=== PATIENT | male | born 1965 | race Caucasian/White ===

== ENCOUNTER 2024-12-23 15:16 | Outpatient (AMB) | payer OTHER, SELFPAY ==
--- OUTSIDE RECORDS SUMMARY | 2024-12-23 16:53 | XMS_ITS | Clinical Summary ---
Author Organization [facility] Address [address] [place] [address] Phone Care Team Providers Care Cook Chef Name Role Phone Ludwig Guzman Primary Care Provider [phone] Social History Tobacco Use Types Packs/Day Years Used Date Smoking Tobacco: Never Smokeless Tobacco: Never Alcohol Use Standard Drinks/Week Comments Yes 0 (1 standard drink = 0.6 oz pur e alcohol) Sex and Gender Information Value Date Recorded Sex Assigned at Not on file Legal Sex Male 3:25 PM EST Gender Identity Not on file Sexual Orientation Not on file Obstetrics History Plan of Treatment Health Maintenance Due Date Last Done Comments DTaP,Tdap,and Td Vaccines (1 - Tdap) 1985 Hepatitis B Vaccines (1 of 3 - 19+ 3-dose series) 1985 Pneumococcal Vaccine: 50+ Ye ars (1 of 1 - PCV) 2016 Zoster Vaccines (1 of 2) 2016 COVID-19 Vaccine (2023-2 5 season) 2023 Depression Screening 05/01/2024 Cholesterol Screening (Lipid Panel) 09/05/2024 Colorectal Cancer Screening: Colonoscopy 09/05/2024 HIV Screening 09/05/2024 Hepatitis C Screening 09/05/2024 Social Influencers of Health Screening 09/05/2024 Influenza Vaccine (#1) 2024 HIB Vaccines Aged Out No longer eligi ble based on patient's age to complete this topic HPV Vaccines Aged Out No longer eligi ble based on patient's age to complete this topic Hepatitis A Vaccines Aged Out No long er eligible based on patient's age to complete this topic IPV Vaccines Aged Out No longer eligi ble based on patient's age to complete this topic MMR Vaccines Aged Out No longer eligi ble based on patient's age to complete this topic Meningococcal ACWY Vaccine Aged Out N o longer eligible based on patient's age to complete this topic Meningococcal B Vaccine Aged Out No l onger eligible based on patient's age to complete this topic RSV Immunization Patients Un melo 20 months Aged Out No longer eligible b ased on patient's age to complete this topic Varicella Vaccines Aged Out No longer eligible based on patient's age to complete this topic Insurance [employer] Care Teams Cook Chef Relationship Specialty Start Date End Date Ludwig Guzman DO 6 [facility] [address] [place], [place] PCP - General Internal Medicine 02/09/21
--- OUTSIDE RECORDS SUMMARY | 2024-12-23 16:53 | XMS_ITS | Clinical Summary ---
Author Organization [facility] Address [address] [place] [address] [place] [id number] Phone Care Team Providers Care Deputy Of Counter Intelligence Name Role Phone Prakash Willard DO Primary Care Provider Allergies Active Allergy Reactions Criticality Noted Date Comments Cefaclor 11/18/2024 Other Reaction(s): Not available Medications testosterone cypionate (DEPO-TESTOTERO NE) 100 mg/mL injection Inject 200 mg into the muscle every 14 (fourteen) days. Active omega 4-und-vxc-fish oil 1,000 mg (120 mg-180 mg) Cap Take 1 capsule by mouth daily. Active KRILL OIL ORAL Take 1,000 mg by mouth daily. Active sertraline (ZOLOFT) 100 MG tablet Take 1.5 tablets (150 mg total) by mouth every morning. 10 tablet 10/12/2024 Active Hospital, Clinic, or Other Facility Administered Medication Ordered Dose Route Frequency Start Date End Date Status triamcinolone acetonide (KENALOG-40) 40 mg/mL injection 20 mg 20 mg See Adm Inst Once 11/18/2024 02/16/2025 Active lidocaine (XYLOCAINE) 1% injection 0.5 mL 0.5 mL See Adm Inst Once 11/18/2024 02/16/2025 Active triamcinolone acetonide (KENALOG-40) 40 mg/mL injection 20 mg 20 mg See Adm Inst Once 11/18/2024 02/16/2025 Active lidocaine (XYLOCAINE) 1% injection 0.5 mL 0.5 mL See Adm Inst Once 11/18/2024 02/16/2025 Active Active Problems Problem Noted Date Diagnosed Date Need for influenza vaccination 02/13/2024 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 Renal cyst 03/16/2023 Environmental allergies 03/16/2023 Hypotestosteronism 12/27/2022 03/16/2023 Assessment & Plan (03/17/2023 12:47 AM EST): Referral placed to endocrinology for further management. Hyperglycemia 03/15/2022 03/16/2023 Depressive disorder 04/02/2019 03/16/2023 Assessment & Plan (03/17/2023 12:47 AM EST): Stable and well-controlled on current medication. No change at this time. Encounters Date Type Department Care Team Description 11/18/2024 8:31 AM EDT - 11/18/2024 11:59 PM EDT Hospital Encounter [address] [address] Kaya Pierce MD Discharge Disposition: Home or Self Care 11/18/2024 8:30 AM EDT Office Visit [facility] [address] [place] [id number] Kaya Pierce MD Pain (Primary Dx); Trigger index finger of left hand; Trigger middle finger of left hand 11/11/2024 Orders Only [facility] [address] [place] [address] ProviderRosy MD 10/12/2024 Telephone [facility] [address] [place] [address] Raquel Kelly NP Medication Problem (After Hours Call/) 10/12/2024 Nurse Triage [address] [place] [address] Georgiana Snow RN Follow-up (After hours call ) 10/12/2024 Orders Only [facility] [address] [place] [address] [place] [address] Prakash Willard, DO 10/02/2024 Refill [facility] [address] [place] [address] [place] [address] Prakash Willard, DO Medication Refill from Last 3 Months Immunizations Immunization Administration Dates Next Due INFLUENZA, SPLIT VIRUS, TRIVALENT PF 02/13/2024 Influenza Quadrivalent Prese rvative Free IM 02/07/2023,01/31/2022,03/02/2021,2019,02/20/2019 Influenza Quadrivalent w/ Preservative IM 02/13/2019 Tdap 11/20/2017 Zoster recombinant 12/08/2023 Family History Medical History Relation Comments Esophageal cancer Father CABG Mother x3 Diabetes mellitus Mother Heart attack Mother Anxiety disorder Sister Depression Sister Cancer Unspecified Stroke Neg Hx Relation Status Comments Father Alive Mother Alive Sister Alive Unspecified Social History Tobacco Use Types Packs/Day Years Used Date Smoking Tobacco: Never Smokeless Tobacco: Never Tobacco Cessation:Counseling Given: Not Answered Alcohol Use Standard Drinks/Week Comments Yes 0 (1 standard drink = 0.6 oz pur e alcohol) social Child or Family Care Answer Date Record ed Do you have problems with on e of the following making it difficult for you to work, study, or receive health care? No 03/15/2023 Education Answer Date Recorded Are you interested in help w ith more adult education (for example, completing high school, GED, job training, learning the [place] language, technical skills, or developing parenting skills)? No 03/15/2023 Are you concerned about learning? Not on file 03/15/2023 No 03/15/2023 Yes 03/15/2023 Food Answer Date Recorded Within the past 6 months we worried whether our food would run out before we got money to buy more. Never True 03/15/2023 Within the past 6 months the food we bought just didn't last and we didn't have enough money to get more. Never True Residential Stability Answer Date Recor ded What is your housing situation today? I have susan sing 03/15/2023 How many times have you moved in the past 12 mon ths? One time 03/15/2023 Paying for Meds Answer Date Recorded Do you have trouble paying for medicines? No 03/15/2023 Paying Utility Bills Answer Date Record ed Do you have trouble paying your heating or elect ricity bill? No 03/15/2023 Transportation Answer Date Recorded Has the lack of transportati on kept you from medical appointments or from getting medications? No 03/15/2023 Digital Access Answer Date Recorded No 03/15/2023 Yes 03/15/2023 Do you have reliable internet access at home? Ye s 03/15/2023 Do you have a device (e.g., phone, tablet, computer) with a working camera? Yes 03/15/2023 Intimate Partner Violence Answer Date R ecorded Denied Basic Needs Not on file 03/15/2023 In the past 12 months have y ou been in a relationship with a person who hurts, threatens, or tries to control you? No 03/15/2023 Worried food would run out Not on file 03/15 In the past 12 months have y ou been in a relationship with a person who hurts, threatens, or tries to control you? No 03/15/2023 Sex and Gender Information Value Date Recorded Sex Assigned at Not on file Legal Sex Male 9:39 PM EDT Gender Identity Not on file Sexual Orientation Not on file Last Filed Vital Signs Vital Sign Reading Time Taken Comments Blood Pressure 150/84 03/16/2023 3:14 PM EST Pulse 98 03/16/2023 3:14 PM EST Temperature 37 C (98.6 F) 03/16/2023 3:14 PM EST Respiratory Rate 18 03/08/2023 12:16 PM EST Oxygen Saturation 97% 03/16/2023 3:14 PM EST Inhaled Oxygen Concentration - - Weight 83 kg (183 lb) 03/16/2023 3:14 PM EST Height 172.7 cm (5' 8 ) 03/16/2023 3:14 PM EST Body Mass Index 27.83 03/16/2023 3:14 PM EST Plan of Treatment Health Maintenance Due Date Last Done Comments LIPID PANEL 1966 HEPATITIS C SCREENING 1984 HIV ONE-TIME SCREENING (18-65 YEARS) 1984 SCREENING FOR DIABETES 2001 COLOGUARD 11/17/2011 FIT TEST 11/17/2011 FOBT 11/17/2011 SIGMOIDOSCOPY 11/17/2011 VIRTUAL COLONOSCOPY 11/17/2011 PNEUMOCOCCAL VACCINES (50+ years) (1 of 1 - PCV) 2016 COVID-19 VACCINE (5 - season) 2023 01/31/2022, 04/13/2021, 06/12/2020, Additional history exists ZOSTER VACCINES (2 of 2) 02/02/2024 12/08/2023 DEPRESSION SCREENING 03/15/2024 03/15/2023 COLONOSCOPY 05/01/2025 05/01/2018 COLORECTAL CANCER SCREENING 05/01/2025 Adult Td,Tdap Booster 11/21/2027 11/20/2017 SMOKING STATUS SCREENING (Once After 26 Yrs) Completed 11/18/2024 HEPATITIS A VACCINES Aged Out No long er eligible based on patient's age to complete this topic HIB VACCINES Aged Out No longer eligi ble based on patient's age to complete this topic MENINGOCOCCAL VACCINES (ACWY) Aged Out No longer eligible based on patient's age to complete this topic MENINGOCOCCAL VACCINES (B) Aged Out N o longer eligible based on patient's age to complete this topic Medical Devices Not on file Procedures Procedure Name Priority Date/Time Associated Diagnosis Comments XR HAND 3 OR MORE VIEWS (LEFT) Routine 11/18/2024 8:38 AM EDT Pain OUTSIDE LAB Routine 11/07/2024 12:31 PM EDT HM COLONOSCOPY FOR RESULT ENTRY ONLY Routine 05/01/2018 from Last 3 Months or Most Recently Relevant to Health Maintenance Results * XR HAND 3 OR MORE VIEWS (LEFT) (11/18/2024 8:38 AM EDT) Narrative SYSTEMGENERATED, DOCUMENTATION - 11/18/2024 8:38 AM EDT This image report has been auto-finalized and has not been read by a Radiologist. Interpretation has been included in the provider encounter note for this date of service. us Kaya Pierce MD IMG XR UPPER EXTREMITY Final Result * Outside Lab (11/07/2024 12:31 PM EDT) Historical Provider LAB BLOOD ORDERABLES Edit ed Result - Final * COLONOSCOPY FOR RESULT ENTRY ONLY (05/01/2018) Colonoscopy several polyps removed Historical Provider HEALTH MAINTENANCE Final Result from Last 3 Months or Most Recently Relevant to Health Maintenance Insurance CHOICE CHOICE CHOICE CHOICE CHOICE CHOICE Care Teams Deputy Of Counter Intelligence Relationship Specialty Start Date End Date Prakash Willard DO [address] [place] [address], [address] [place] [address] [email or web address] PCP - General Internal Medicine 03/08/23 Additional Source Comments The information contained in this document represents components of the legal health record. It is not the complete legal health record.[facility]
--- OUTSIDE RECORDS SUMMARY | 2024-12-23 16:53 | XMS_ITS | Encounter Summary ---
Author Organization [facility] Address [address] [place] [phone] Care Team Providers Care Double End Production Grinder Name Role Phone Ludwig Guzman DO Primary Care Provider [phone] Encounter Details Date Type Department Care Team (Late st Contact Info) Description 09/04/2024 Lab Requisition [facility] - Main Lab [address] [place] [address] Bita Figueroa NP 200 [facility] [address] [place] [address] Benign prostatic hyperplasia with lower urinary tract symptoms Social History Tobacco Use Types Packs/Day Years Used Date Smoking Tobacco: Never Smokeless Tobacco: Never Alcohol Use Standard Drinks/Week Comments Yes 0 (1 standard drink = 0.6 oz pur e alcohol) Sex and Gender Information Value Date Recorded Sex Assigned at Not on file Legal Sex Male 3:25 PM EST Gender Identity Not on file Sexual Orientation Not on file documented as of this encounter Plan of Treatment Not on file documented as of this encounter Procedures Procedure Name Priority Date/Time Associated Diagnosis Comments PROSTATE SPECIFIC ANTIGEN DIAGNOSTIC Routine 09/04/2024 10:30 AM EDT Benign prostatic hyperplasia with lower urinary tract symptoms documented in this encounter Results * Prostate specific antigen diagnostic (09/04/2024 10:30 AM EDT) PSA 1.26 0.00 - 4.00 ng/mL LAB CHEMISTRY METHOD 09/04/2024 4:18 PM EDT [facility] Blood Venous blood specimen / Unknown 09/04/2024 10:30 AM EDT 09/04/2024 1:50 PM EDT Narrative [facility] ([facility] - 09/04/2024 4:18 PM EDT The Siemens Advia Centaur Chemiluminescent Immunoassay is used. Results obtained with different assay methods or kits cannot be used interchangeably. Results cannot be interpreted as absolute evidence of the presence or absence of malignant disease. us Sunshine Figueroa PRODUCT ANALYST LAB BLOOD ORDERABLES Final Resul t [facility] [address] [place] [address], documented in this encounter Visit Diagnoses Diagnosis Benign prostatic hyperplasia with lower urinary tract symptoms documented in this encounter Care Teams Double End Production Grinder Relationship Specialty Start Date End Date Ludwig Guzman DO 6 [facility] [address] [place], [place] PCP - General Internal Medicine 02/09/21 documented as of this encounter
== END 2024-12-24 13:48 | disposition home or self-care (01) ==
LOC: HO.HMGAL 15:16
PROVIDERS: PCP Internal Medicine; Visit Provider Registered Nurse Emergency
DX: J30.89 Other allergic rhinitis (principal)
CPT/HCPCS: 95117; 95165

== ENCOUNTER 2025-02-03 11:36 | Outpatient (AMB) | payer OTHER, SELFPAY ==
--- OUTSIDE RECORDS SUMMARY | 2025-02-03 14:11 | XMS_ITS | Clinical Summary ---
Author Organization [address] [facility] Address [address] [place] [address] Phone Care Team Providers Care Loan Examiner Name Role Phone Ludwig Guzman DO Primary Care Provider [phone] Social History Tobacco Use Types Packs/Day Years [...] Health Maintenance Due Date Last Done Comments Colorectal Cancer Screening: Colonoscopy 1966 DTaP,Tdap,and Td Vaccines (1 - Tdap) 1985 Hepatitis B Vaccines (1 of 3 - 19+ 3-dose series) 1985 Pneumococcal Vaccine: 50+ Ye ars (1 of 1 - PCV) 2016 Zoster Vaccines (1 of 2) 2016 Depression Screening 05/01/2024 Cholesterol Screening (Lipid Panel) 09/05/2024 HIV Screening 09/05/2024 Hepatitis C Screening 09/05/2024 Social Influencers of Health Screening 09/05/2024 COVID-19 Vaccine ( - 2023-2 5 season) 2024 Influenza Vaccine (#1) 2024 RSV Immunization Adult Patie nts (1 - 1-dose 75+ series) 2041 HIB Vaccines Aged Out No longer eligi [...] complete this topic Insurance [employer] Care Teams Loan Examiner Relationship Specialty Start Date End Date Ludwig Guzman DO 6 [facility] [address] [place], [place] PCP - General Internal Medicine 02/09/21
--- OUTSIDE RECORDS SUMMARY | 2025-02-03 14:12 | XMS_ITS | Encounter Summary ---
Author Organization [facility] [place] Address [id number] [place] [phone] Care Team Providers Care Car Wash Attendant Name Role Phone Ludwig Guzman DO Primary Care Provider [phone] Encounter Details Date Type Department Care Team (Late st Contact Info) Description 09/04/2024 Lab Requisition [facility] - Main Lab [address] [place] [address] Bita Figueroa NP 200 [facility] [address] [place] [address] Benign prostatic hyperplasia with lower [...] LAB CHEMISTRY METHOD 09/04/2024 4:18 PM EDT [facility] ([facility] Blood Venous blood specimen / Unknown 09/04/2024 10:30 AM EDT 09/04/2024 1:50 PM EDT Narrative [facility] ([facility] - 09/04/2024 4:18 PM EDT The Siemens Advia Centaur Chemiluminescent Immunoassay is used. Results obtained with different assay methods or kits cannot be used interchangeably. Results cannot be interpreted as absolute evidence of the presence or absence of malignant disease. us Sunshine Figueroa IT TECHNICAL SUPPORT SPECIALIST LAB BLOOD ORDERABLES Final Resul t [facility] [address] [place] [address], documented in this encounter Visit Diagnoses Diagnosis Benign prostatic hyperplasia with lower urinary tract symptoms documented in this encounter Care Teams Car Wash Attendant Relationship Specialty Start Date End Date Ludwig Guzman DO 6 [facility] [address] [place], [place] PCP - General Internal Medicine 02/09/21 documented as of this encounter
== END 2025-02-03 11:39 | disposition home or self-care (01) ==
LOC: HO.HMGAL 11:36
PROVIDERS: PCP Pediatrics; Visit Provider Registered Nurse Emergency
DX: J30.89 Other allergic rhinitis (principal)
CPT/HCPCS: 95117; 95165

== ENCOUNTER 2025-03-19 13:22 | Outpatient (AMB) | payer OTHER, SELFPAY ==
--- OUTSIDE RECORDS SUMMARY | 2025-03-20 01:21 | XMS_ITS | Clinical Summary ---
Author Organization [facility] Address [address] [facility] [address] [place] [phone] Phone Care Team Providers Care Area Intelligence Technician Name Role Phone Prakash Willard DO Primary Care Provider Allergies Active Allergy Reactions Criticality Noted Date Comments Cefaclor 11/18/2024 Other Reaction(s): Not available Medications testosterone cypionate (DEPO-TESTOTERO NE) 100 mg/mL injection Inject 200 mg into the muscle every 14 (fourteen) days. Active omega 3-ozj-cjy-fish oil 1,000 mg (120 mg-180 mg) Cap Take 1 capsule by mouth daily. Active KRILL OIL ORAL Take 1,000 mg by mouth daily. Active sertraline (ZOLOFT) 100 MG tablet Take 1.5 tablets (150 mg total) by mouth every morning. 135 tablet 01/20/2025 Active Active Problems Problem Noted Date Diagnosed [...] current medication. No change at this time. Immunizations Immunization Administration Dates Next Due INFLUENZA, [...] Answer Date Recorded Are you interested in more education? Not on scooter e 03/19/2025 Are you concerned about learning? Not on file 03/19/2025 No 03/19/2025 No 03/19/2025 Food Answer Date Recorded Within the past [...] 03/15/2023 Digital Access Answer Date Recorded No 03/19/2025 No 03/19/2025 Reliable internet access at home? Not on file 03/19/2025 Device with a working camera? Not on file Intimate Partner Violence Answer Date R ecorded [...] 03/16/2023 3:14 PM EST Plan of Treatment Upcoming Encounters Date Type Department Care Team (Late st Contact Info) Description 04/22/2025 8:00 AM EST Office Visit [facility] [address] [place] [address] [place] [address] Prakash Willard DO [address] [place] [address] [email or web address] Health Maintenance Due Date Last Done Comments LIPID PANEL 1966 HEPATITIS C SCREENING 1984 HIV ONE-TIME SCREENING (18-65 YEARS) 1984 SCREENING FOR DIABETES 2001 COLOGUARD 11/17/2011 FIT TEST 11/17/2011 FOBT 11/17/2011 SIGMOIDOSCOPY 11/17/2011 VIRTUAL COLONOSCOPY 11/17/2011 PNEUMOCOCCAL VACCINES (50+ years) (1 of 1 - PCV) 2016 ZOSTER VACCINES (2 of 2) 02/02/2024 12/08/2023 DEPRESSION SCREENING 03/15/2024 03/15/2023 INFLUENZA VACCINE (#1) 2024 , 02/07/2023, 01/31/2022, Additional history exists COVID-19 VACCINE ( season) 2024 01/31/2022, 04/13/2021, 06/12/2020, Additional history exists COLONOSCOPY 05/01/2025 05/01/2018 COLORECTAL CANCER SCREENING 05/01/2025 Adult Td,Tdap Booster 11/21/2027 11/20/2017 RSV VACCINE (1 - 1-dose 75+ series) 2041 SMOKING STATUS SCREENING (Once After 26 Yrs) [...] Procedure Name Priority Date/Time Associated Diagnosis Comments COLONOSCOPY FOR RESULT ENTRY ONLY Routine 05/01/2018 from Last 3 Months or Most Recently Relevant to Health Maintenance Results * COLONOSCOPY FOR RESULT ENTRY ONLY (05/01/2018) Colonoscopy several polyps removed us Historical Provider HEALTH MAINTENANCE Final Result from Last 3 Months or Most Recently Relevant to Health Maintenance Insurance CHOICE CHOICE CHOICE CHOICE CHOICE Care Teams Area Intelligence Technician Relationship Specialty Start Date End Date Prakash Willard DO [address] [place] [address], [address] [place] [address] [email or web address] PCP - General Internal Medicine 03/08/23 Additional Source Comments The information contained in this document represents components of the legal health record. It is not the complete legal health record.[facility]
--- OUTSIDE RECORDS SUMMARY | 2025-03-20 01:21 | XMS_ITS | Data Portability ---
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 REVIEW OF PRIOR EXTERNAL NOTES/RESULTS, ORDERING OF TEST(S) CATEGORY 2. 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 REVIEW OF PRIOR EXTERNAL NOTES/RESULTS, ORDERING OF TEST(S) CATEGORY 2. 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 REVIEW OF PRIOR EXTERNAL NOTES/RESULTS, ORDERING OF TEST(S) CATEGORY 2. ASSESSMENT REQUIRING INDEPENDENT HISTORIAN(S) INCLUDE WHO THE HISTORIAN IS AND RELATION TO PT AND WHY PT IS UNABLE TO GIVE COMPLETE HISTORY ELEMENT 3: RISK (LOW) RISK OF COMPLICATIONS AND/OR MORBIDITY OR MORTALITY OF PATIENT MANAGEMENT PROVIDER MUST THOROUGHLY DOCUMENT ALL OF THE ELEMENTS COVERED Not available 12/27/2022 16:47:34 Plan of Treatment Reminders Order Date Submit Date Provider Last Modified By Organization Details Last Modified Time Details Appointments None recorded. Lab lipid panel, serum 2021 [facility], [address] [place], [address], 11:28:46 CMP, serum or plasma 2021 [facility], [address] [place], [address], 11:28:46 CBC 2021 [facility], [address] [place], [address], 11:28:46 testostero ne, free + total, serum 2021 [facility], [address] [place], [address], 11:28:46 Referral endocrinol ogy referral - patient has been treated by a company in [facility] for hypotestos teronism asked to have this continued i told him he needs to go through a local endocrinol ogist for this. he agrees His initial testostero ne level was 164 so he does have true low T . thank you . 2022 023 quincy Begum MD, [address] , [place], [address], 3 10:17:12 colonoscop y referral 2019 020 JENNIFER Galvez MD, [address] [place], [address], 1 15:27:52 Procedures None recorded. Surgeries None recorded. Imaging None recorded. Medication Orders sertraline 100 mg tablet 2021 022 [id number], [address] [place], [address], 2 11:17:26 sertraline 100 mg tablet 2019 020 [id number], [address] [place], [address], 0 16:14:43 Patient TargetsNo targets recorded. Patient Instructions Encounter Date Encounter Id Patient Instructions Last Modified By Organization Details Last Modified Time 05/06/2019 [id number] learning about mood disorders Not available 05/06/2019 16:14:38 07/08/2019 [id number] inguinal hernia: care instructions Not available 07/08/2019 15:41:38 learning about mood disorders Not available 07/08/2019 15:41:38 03/22/2022 [id number] learning about high blood sugar Not available 03/22/2022 17:24:56 Reason for Referral Colonoscopy Referral for Scr eening for malignant neoplasm of colon colonoscopy Referring Physician: Ludwig Guzman, Internal Medicine, Encounter Date: 07/08/2019 Endocrinology Referral for H ypotestosteronism patient has been treated by a company in [facility] for hypotestosteronism asked to have this continued i told him he needs to go through a local carbonating stone cleaner for this. he agrees His initial testosterone level was 164 so he does have true low T . thank you . Referring Physician: Ludwig Guzman, Internal Medicine, Encounter Date: 12/27/2022 Results Created Date Observation Date Name Description Value Unit Range Abnormal Flag Note LastModifiedBy Organization Detail LastModifiedTime 06/02/19 21 05/27/2020 patho logy note No observ ation record ed. Not Available 2020 15:23:30 Result Notes None recorded. Problems Name Problem SNOMED Code Status Onset Date Resolution Date Notes Provider Name and Address Organization Details Recorded Time Scalp folliculi tis 965729520 Active 2018 Not Available [facility] 23:47:28 Depressiv e disorder 05910267 Active 2018 Not Available [facility] 23:47:28 Fatigue 39123191 Active 2021 Ludwig Guzman DO [address] [place] [address], [phone], [facility] [place] 2 11:15:56 Hyperglyc emia 69553765 Active 2021 Ludwig Guzman DO [address] [place] [address], [phone], [facility] [place] 2 23:37:23 Hypotesto steronism 040176158550 4 Active 2022 Ludwig Guzman DO [address] [place] [address], [phone], [facility] [place] 3 16:47:57 Problem Notes None recorded. Procedures Surgical History Date Name Laterality Status Provider Name and Address Organization Details Recorded Time 05/26/19 21 colonoscopy completed Ludwig Guzman DO [address] [place] [address], [phone], [facility] [place] 05/26/2020 17:16:48 Imaging Results None recorded. Procedure Notes None recorded. Medical Equipment None Reported. Allergies Allergen ID Allergen Name Allergen Category Reaction Reaction Severity Criticality Documentation Date Start Date Code Code System Note Provider Name and Address Organization Details Recorded Time 3507 Ceclor medicatio n Not available Not available Not available 01/14/2019 5 RxMaurisio presley [facility] 9 16:41:12 Medications Name Sig Start Date Stop Date Status Note LastModified by Organization Details LastModified Time azithromyci n 250 mg tablet TAKE 2 TABLETS BY MOUTH TODAY, THEN TAKE 1 TABLET DAILY FOR 4 DAYS 03/22 completed Not Available Not Available Not Available ibuprofen 800 mg tablet 02/18 completed Not Available Not Available Not Available sertraline 100 mg tablet TAKE 1.5 TAB BY MOUTH EVERY DAY- NEEDS APPT FOR FURTHER REFILLS active Not Available Not Available No t Available cephalexin 500 mg capsule 02/18 completed Not Available Not Available Not Available sertraline 50 mg tablet Take 1 tablet every day by oral route for 30 days. 04/02 completed Not Available Not Available Not Available doxycycline hyclate 100 mg tablet TAKE 1 TABLET BY MOUTH TWICE A DAY FOR 10 DAYS 03/22 completed Not Available Not Available Not Available clindamycin phosphate 1 % topical solution APPLY A THIN LAYER TO THE AFFECTED AREA(S) BY TOPICAL ROUTE 2 TIMES PER DAY active Not Available Not Available No t Available clindamycin 1 % lotion 02/18 completed Not Available Not Available Not Available tadalafil 20 mg tablet TAKE 1/2 TABLET BY MOUTH EVERY 3 DAYS NEEDED active Not Available Not Available No t Available Afluria Qd 2019-20 (36 mos up)(PF)60 mcg (15 mcg x4)/0.5 mL IM syringe 05/06 completed Not Available Not Available Not Available Vitals Date Recorded Body height Body mass index (BMI) Body weight Heart rate Oxygen saturation Oxygen saturation in Arterial blood by Pulse oximetry Systolic And Diastolic Provider Name and Address Organization Details Last Updated DateTime 0 172.72 cm 24.8 kg/m2 11767.2 g 84 /min 97 % 97 % 120/70 mm[Hg] Ludwig Guzman, DO [address] [place], [address] , [facility] 0 16:03:57 Date Recorded Body height Body mass index (BMI) Body weight Heart rate Oxygen saturation Oxygen saturation in Arterial blood by Pulse oximetry Systolic And Diastolic Provider Name and Address Organization Details Last Updated DateTime 0 172.72 cm 26.3 kg/m2 94766.4 g 73 /min 95 % 95 % 118/70 mm[Hg] Nancie Canales [facility] 0 15:21:47 Date Recorded Body height Oxygen saturation Oxygen saturation in Arterial blood by Pulse oximetry Heart rate Systolic And Diastolic Provider Name and Address Organization Details Last Updated DateTime 2 172.72 cm 97 % 97 % 91 /min 124/80 mm[Hg] Rosa Candace [facility] 2 16:39:33 Social History Question Answer Notes LastModified by ProtAb Details LastModified Time Tobacco Smoking Status Never Smoker Not Available [facility] 03/03/2020 03:36:24 What Is Your Level Of Caffeine Consumption? Occasional 1-2 Cups Coffee Per Day [id number] Information not available 03/03/2020 Sex: Unknown Functional Status Question Answer Note LastModified by ProtAb Details LastModified Time What is your level of alcohol consumption? Occasional [id number] Information not available 03/03/2020 What is your exercise level? Occasional exercise 5 times per week [id number] Information not available 03/03/2020 Mental Status None recorded. Family History Nothing Reported. Medical History No medical history recorded. Immunizations Vaccine Type Date Status Note Provider Nam e and Address Organization Details Recorded Time Influenza, split virus, quadrivalent, preservative 9 completed Not Available [facility] 01/18/2021 23:47:28 Tdap 8 completed Not Available [facility] 01/18/2021 23:47:28 Influenza, split virus, quadrivalent, preservative 0 completed Not Available [facility] 01/18/2021 23:47:28 Past Encounters Encounter ID Performer Location Encounter Start Date Encounter Closed Date Diagnosis/Indication Diagnosis SNOMED-CT Code Diagnosis ICD10 Code Diagnosis IMO Codes Diagnosis Note [id number] Ludwig Guzman DO [facility] [address] [facility],[place] [address] 02/18/2019 15:16:42 02/18/2019 16:30:01 Adult health examination 053011865 Z00.00 Fatigue 36796404 R53.83 Scalp folliculitis 96430 8003 L73.8 Obsessive- compulsive disorder 254387153 F42.9 will start low dose [id number] [facility] [address] [facility] [address] [address] 05/06/2019 15:43:43 05/06/2019 16:16:19 Depressive disorder 10575801 F32.9 doing well with sertrralin e mark increase dose to [id number] [facility] [address] [facility],[place] [address] 07/08/2019 15:16:54 07/08/2019 15:44:26 Active or passive immunization 182582776 Z23 already got the Tdap two years ago not interested in the shingrix shot at this time Screening for malignant neoplasm of colon 301500509 Z12.11 overdue for colonoscop y would like to go to [facility] in [facility] Depressive disorder 3548 9007 F32.9 doing well on sertraline 150 mg would like to stay on this dosage Right inguinal hernia 23 5452068 K40.90 right hernia not bothering pt at the moment will call back if he starts experienci ng pain and it interfere with his life [id number] [facility] [address] [facility],[place] [address] 02/18/2022 08:05:56 02/18/2022 13:36:23 Depressive disorder 83966215 F32.9 doing well on sertraline 150 mg would like to stay on this dosage also he is taking testostero ne through a online clinic for low T he is actually using 100mg inj twice a week he did have follow up lab Fatigue 23690505 R53.[id number] [facility] [address] [facility],[place] [address] 03/22/2022 16:34:09 03/23/2022 07:46:19 Hyperglycemia 85833656 R73.9 a1c [ending [id number] [facility] [address] [facility],[place] [address] 12/27/2022 08:38:03 12/28/2022 09:28:48 Hyperglycemia 53362985 R73.9 a1c will be needed Hypotestosteronism 35165 43101 104 R89.1 relates has been getting this low testostero ne hx treated by some clinic in [facility] that he has never been torelates they were giving him a 200u vial and he was taking 0.4 twice a week injectionw ants me to do this for him as the clinic is not going to be dispensing the med anymore (due to MARTHA scrutiny). i told him i will not be the one to pick that up and cont rx if he has true hypotestos teronism then he should be seen by endocrinol ogist and decided on the most appropriat etreatment plan Health Concerns Section Related Observation LastModified by Organization Detai ls LastModified Time None Recorded Concern Status LastModified by Organization Details LastModified Time None Recorded Advance Directives Directive None Recorded Payers Insurance Date Sequence Insurance Name Policy Number Policy Tee Covered Member ID Tee Member ID Guarantor Name 12/24/2022 1 [facility] IN[facility]MNITY [facility]AN (INDEMNITY) [id number] 2 Tonny Munguia [id number] Tonny Munguia Notes Date Note Type Note Provider Name and Address Organization Details Recorded Time 05/06/19 20 text/ht ml ROS as noted in the HPI here for follow up does feel a little better with 100 mg dose for the last 5 weeks Ludwig Guzman, DO [address] [facility], [place], [address], [facility] [place] 05/06/2019 16:15:29 07/08/19 20 text/ht ml ROS as noted in the HPI c/o medication f/u patient started sertraline > states he has night sweats just in his LE intermittently Started in January > started to taper up after initial dose has been doing well on them with no increase in anxiety and depression Is taking 1.5 tablets qd > is getting good effect with them feels he is good with his current medication dosage BP is excellent today at 118/70 thinks he may have a hernia in right groin after working out > 5 weeks ago is not sore or painful, no warm, no erythema does not bother him when he exercises, reduced by itself but noticed when he sneezed it bulged out no chest pain no sob no fever no muscle aches Ludwig Guzman DO [address] [place], [address], [facility] [place] 07/08/2019 15:42:30 02/19/20 22 text/ht ml ROS as noted in the HPI here for rechk and tele visitpatient is evaluated via tele/video assessment per patient consentduring current pandemic states feeling good and taking the setralinewithout prob has started TRT and had testosterone level was at 160 and is now being treated by an alternative med and given testosterone cypr 100mg twice a weekanastro and [facility] Ludwig Guzman DO [address] [place], [address], [facility] [place] 02/18/2022 11:20:34 03/22/20 22 text/ht ml ROS as noted in the HPI here for rechk and review of his labdiscussed levels of lab done at an alternative lab sitethis is where he got testosterone injectablehis testosterone he gets 100mg twice weeklyalso and he also had a glucose level that was \sll elevated at 120 Ludwig Guzman DO [address] [place], [address], [facility] [place] 03/22/2022 17:25:19 12/28/19 23 text/ht ml ROS as noted in the HPI patient is evaluated via tele/video assessment per patient consentduring current pandemicrelates that he has been [facility] [place] [place] [facility] Ludwig Guzman DO [address] [place], [address], [facility] [place] 12/27/2022 16:55:50
== END 2025-03-19 13:23 | disposition home or self-care (01) ==
LOC: HO.HMGAL 13:22
PROVIDERS: PCP Pediatrics; Visit Provider Registered Nurse Emergency
DX: J30.89 Other allergic rhinitis (principal)
CPT/HCPCS: 95117; 95165

== ENCOUNTER 2025-04-21 15:29 | Outpatient (AMB) | payer OTHER, SELFPAY ==
--- OUTSIDE RECORDS SUMMARY | 2025-04-21 18:29 | XMS_ITS | Encounter Summary ---
Author Organization [facility] Address [address] [place] [address] Care Team Providers Care Lab Nurse Name Role Phone Ludwig Guzman DO Primary Care Provider [phone] Encounter Details Date Type Department Care Team (Late st Contact Info) Description 09/04/[address] [facility] [address] [place] [address] Bita Figueroa NP [address] [facility] [address] [place] [address] Benign prostatic hyperplasia with lower [...] LAB CHEMISTRY METHOD 09/04/2024 4:18 PM EDT [facility] ([facility] Blood Venous blood specimen / Unknown 09/04/2024 10:30 AM EDT 09/04/2024 1:50 PM EDT Narrative [facility] ([facility] - 09/04/2024 4:18 PM EDT The Siemens Advia Centaur Chemiluminescent Immunoassay is used. Results obtained with different assay methods or kits cannot be used interchangeably. Results cannot be interpreted as absolute evidence of the presence or absence of malignant disease. us Sunshine Figueroa PLANT PHYSIOLOGY TEACHER LAB BLOOD ORDERABLES Final Resul t [facility] [address] [place] [address], documented in this encounter Visit Diagnoses Diagnosis Benign prostatic hyperplasia with lower urinary tract symptoms documented in this encounter Care Teams Lab Nurse Relationship Specialty Start Date End Date Ludwig Guzman DO [address] [facility] [address] [place], [place] PCP - General Internal Medicine 02/09/21 documented as of this encounter
--- OUTSIDE RECORDS SUMMARY | 2025-04-21 18:29 | XMS_ITS | Clinical Summary ---
Author Organization [facility] Address [address] [employer] [facility] [address] [place] [phone] Phone Care Team Providers Care Bilingual Trainer Name Role Phone Prakash Willard DO Primary Care Provider Allergies Active Allergy Reactions Criticality Noted Date Comments Cefaclor 11/18/2024 Other Reaction(s): Not available Medications testosterone cypionate (DEPO-TESTOTER ONE) 100 mg/mL injection Inject 200 mg into the muscle every 14 (fourteen) days. Active omega 1-oru-gql-fish oil 1,000 mg (120 mg-180 mg) Cap Take 1 capsule by mouth daily. Active KRILL OIL ORAL Take 1,000 mg by mouth daily. Active sertraline (ZOLOFT) 100 MG tablet TAKE 1.5 TABLETS BY MOUTH EVERY MORNING. 135 tablet Active sertraline (ZOLOFT) 100 MG tablet Take 1.5 tablets (150 mg total) by mouth every morning. 135 tablet 5 04/15/20 25 Discontinued Active Problems Problem Noted Date Diagnosed Date [...] Encounters Date Type Department Care Team Description 04/13/2025 Refill [facility] [address] [place] [address] [address] [place], [place] [address] Deidre Romero PA-C Medication Refill from Last 3 Months Immunizations [...] your housing situation today? I have susan santizo 03/15/2023 How many times have you moved [...] Description 04/22/2025 8:00 AM EST Office Visit [facility] [address] [place] [address] Prakash Willard DO [address] [facility] [address] Floor [place] [address] [email or web address] Health Maintenance Due Date Last Done Comments [...] 02/07/2023, 01/31/2022, Additional history exists COVID-19 VACCINE (2024- season) 2024 01/31/2022, 04/13/2021, 06/12/2020, Additional history [...] Procedure Name Priority Date/Time Associated Diagnosis Comments HM COLONOSCOPY FOR RESULT ENTRY ONLY Routine 05/01/2018 from Last 3 Months or Most Recently Relevant to Health Maintenance Results * COLONOSCOPY FOR RESULT ENTRY ONLY (05/01/2018) Colonoscopy several polyps removed us Historical Provider MD HEALTH MAINTENANCE Final Result from Last 3 Months or Most Recently Relevant to Health Maintenance Insurance CHOICE CHOICE CHOICE CHOICE CHOICE CHOICE [place] [id number] Care Teams Bilingual Trainer Relationship Specialty Start Date End Date Prakash Willard DO [address] [place] [address], [address] [place] [address] [email or web address] PCP - General Internal Medicine 03/08/23 Additional Source Comments The information contained in this document represents components of the legal health record. It is not the complete legal health record.[facility]
--- OUTSIDE RECORDS SUMMARY | 2025-04-21 18:29 | XMS_ITS | Clinical Summary ---
Author Organization [address] [facility] Address [address] [place] [address] Phone Care Team Providers Care Structural Rigger Name Role Phone Ludwig Guzman DO Primary Care Provider [phone] Social History Tobacco Use Types Packs/Day Years Used Date Smoking Tobacco: Never Smokeless Tobacco: Never Alcohol Use Standard Drinks/Week Comments Yes 0 (1 standard drink = 0.6 oz pur e alcohol) Sex and Gender Information Value Date Recorded Sex Assigned at Not on file Legal Sex Male 3:25 PM EST Gender Identity Not on file Sexual Orientation Not on file Plan of Treatment Health Maintenance Due Date [...] Influencers of Health Screening 09/05/2024 COVID-19 Vaccine (1 - 2024-2 6 season) 2024 Influenza Vaccine (#1) 2024 RSV [...] complete this topic Insurance [employer] Care Teams Structural Rigger Relationship Specialty Start Date End Date Ludwig Guzman DO [address] [facility] [address] [place], [place] PCP - General Internal Medicine 02/09/21
== END 2025-04-21 15:29 | disposition home or self-care (01) ==
LOC: HO.HMGAL 15:29
PROVIDERS: PCP Pediatrics; Visit Provider Registered Nurse Emergency
DX: J30.89 Other allergic rhinitis (principal)
CPT/HCPCS: 95117; 95165